=== PATIENT | male | born 1965 | race Caucasian/White ===

== ENCOUNTER 2017-08-29 10:20 | Inpatient (IN) ==
--- NOTE | 2017-08-29 10:29 | Emergency Department Note ---
Disposition Clinical Impression: Hemoptysis Pneumonia Qualifiers: Pneumonia type: due to unspecified organism Laterality: right Lung location: upper lobe of lung Qualified Code(s): J18.1 - Lobar pneumonia, unspecified organism Disposition: Admitted As Inpatient Condition: Fair Referrals: Yarelis Norwood CNP [Primary Care Provider] - Time of Disposition: 14:23 General Adult HPI - General Chief complaint: ED Chest Pain Stated complaint: chest pain and bleeding in right lung-cancer cente Time Seen by Provider: 08/29/17 10:29 Source: patient Limitations: no limitations Nursing Notes Reviewed: Yes Vital Signs Reviewed: Yes - History of Present Illness HPI Narrative: Hemoptysis began last night. Started out as a painting sputum. Today is chintan blood when he coughs. No episodes while here. Reports right-sided chest pain that is very significant even when you lightly palpate his chest wall. No fevers at home. Was at the cancer center and sent here for the hemoptysis. Pain Scale: 6 - Related Data Home Medications Medication Instructions Recorded Confirmed Docusate Sodium [Stool Softener] 100 mg PO DAILY 08/24/17 08/24/17 Previous Rx's Medication Instructions Recorded Magic Mouthwash [Magic Mouthwash 10 ml PO QID PRN #240 ml 07/31/17 BLM] Ondansetron HCl [Zofran] 4 mg PO Q8HR PRN #90 tab 07/31/17 Prochlorperazine Maleate 10 mg PO Q8HR PRN #90 tablet 07/31/17 [Compazine] Morphine Sulfate SR (12 HR) [MS 1 tab PO Q8HR 30 Days #90 tab 08/21/17 Contin] OxyCODONE Immed Rel [Roxicodone 5 10 mg PO Q6HR PRN 15 Days #120 08/24/17 MG] tablet Allergies Allergy/AdvReac Type Severity Reaction Status Date / Time No Known Allergies Allergy Verified 08/29/17 10:22 All systems ED: reviewed and negative except as stated. Constitutional: Denies: fever, chills ENT ED: Denies: congestion Cardiovascular: Reports: chest pain. Denies: palpitations, syncope Respiratory: Reports: cough, dyspnea, sputum production (Bloody) Gastrointestinal: Denies: abdominal pain, nausea, vomiting, diarrhea Genitourinary: Denies: urgency, dysuria Integumentary: Denies: rash Neurological: Denies: weakness Past Medical History - Past Medical History Attestation: Yes The following information was validated with the patient. Source: patient Medical history: Reports: cancer, other Surgical history: Reports: other Psychiatric history: Reports: no psych history - Social History Smoking Status: Former smoker Smokeless Tobacco Status: No Alcohol use: Reports: none Drug use: Reports: none Physical Exam - General Limitations: no limitations General appearance: alert, in no apparent distress - Head Head exam: atraumatic, normocephalic, normal inspection - Eye Eye exam: Present: normal appearance, PERRL, EOMI - ENT ENT exam: normal exam, normal oropharynx, mucous membranes moist - Neck Neck exam: Present: normal inspection, full ROM, trachea midline - Chest Chest inspection: Present: normal inspection, symmetric chest wall rise - Respiratory Respiratory exam: Present: normal lung sounds bilaterally. Absent: respiratory distress, accessory muscle use - Cardiovascular Cardiovascular exam: Present: regular rate, normal rhythm, normal heart sounds - Abdominal Exam Abdominal exam: Present: soft, Non-Tender. Absent: tenderness, distention, guarding, rebound, rigidity, organomegaly - Extremities Exam Extremities exam: Present: normal inspection, full ROM, normal capillary refill. Absent: tenderness, pedal edema - Neurological Exam Neurological exam: Present: alert, oriented X3 - Psychiatric Psychiatric exam: Present: normal affect, normal mood - Skin Skin exam: Present: warm, dry, intact, normal color Course Course Narrative: Male patient being sent from the cancer center for a CT of his chest. States that he started having some pink tinged sputum last night and now has bright red blood-tinged sputum this morning. Denies any fevers or chills. Denies any constitutional symptoms. States that he would not be here except he was sent for the CT. We will contact the cancer Center to discuss the patient's presentation and ensure we are ordering the correct CT. He is agreeable with this. He does report right-sided chest pain. States that it hurts if you just touch his skin. This is consistent with his small cell carcinoma. States that he always has this pain on the right side of his chest. - Reevaluation(s) Reevaluation #1: Patient was found to be anemic. We have started 1 unit of blood. CTA showed central necrosis and progression of his cavitary lesion. Also possible pneumonia with a cavitary lesion in central necrosis. We will start patient on antibiotic said this time. He was febrile at 100.1 while here. We have discussed the patient with the hospitalist as well as the chargeback analyst. Patient is agreeable to admission at this time. - Consultations Consultation #1: Dr smith accepted Pt in stable condition. He is requesting that we consult home. We have placed the order and call. Time: 14:12 Consultation #2: I spoke with Dr Arroyo. He is requesting that the Pt be NPO at midnight Time: 14:21 Vital Signs Temperature 100.1 F H 08/29/17 10:22 Pulse Rate 86 08/29/17 10:22 Respiratory Rate 20 08/29/17 10:22 Blood Pressure 109/65 08/29/17 10:22 O2 Sat by Pulse Oximetry 97 08/29/17 10:22 Temperature 98.4 F 08/29/17 14:03 Pulse Rate 81 08/29/17 14:07 Respiratory Rate 12 08/29/17 14:07 Blood Pressure 113/68 08/29/17 14:07 O2 Sat by Pulse Oximetry 95 08/29/17 14:07 Oxygen Delivery Oxygen Delivery Room Air Medical Decision Making - Medical Records Medical records reviewed: Yes I reviewed the patient's medical records. - Lab Data Lab results reviewed: Yes I reviewed the patient's lab results. Result diagrams: 08/29/17 10:56 08/29/17 10:57 Lab Results 08/29/17 08/29/17 08/29/17 Range/Units 10:56 10:57 12:12 WBC 8.3 (4.3-11.1) K/mcL RBC 3.15 L (4.19-5.50) M/mcL Hgb 8.8 L (12.9-16.9) g/dL Hct 26.3 L (37.5-50.1) % MCV 83.5 (83.0-100.0) fL MCH 27.9 L (28.0-33.3) pg MCHC 33.5 (31.6-35.5) g/dL RDW 14.6 H (11.5-14.5) % Plt Count 171 (140-400) K/mcL MPV 9.9 (9.4-12.4) fL Immature Gran % 1.0 (0-4) % Seg Neutrophils % 86.8 % Lymphocytes % 4.5 % Monocytes % 7.5 % Eosinophils % 0.1 % Basophils % 0.1 % Neutrophils # 7.2 (1.6-8.9) K/mcL Lymphocytes # 0.4 L (0.6-4.6) K/mcL Monocytes # 0.6 (0.0-1.3) K/mcL Eosinophils # 0.0 (0.0-0.6) K/mcL Basophils # 0.0 (0.0-0.2) K/mcL Sodium 127 L (136-145) mEq/L Potassium 3.7 (3.5-5.1) mEq/L Chloride 93 L (98-107) mEq/L Carbon Dioxide 28 (23-29) mEq/L BUN 11 (6-20) mg/dL Creatinine 0.50 L (0.70-1.30) mg/dL Est GFR ( Amer) > 60 (> 60) Est GFR (Non-Af Amer) > 60 (> 60) BUN/Creatinine Ratio 22 (6-26) Glucose 117 H (70-105) mg/dL Calculated Osmolality 264 L (280-300) Calcium 8.6 (8.6-10.3) mg/dL Troponin I < 0.03 (< 0.04) ng/mL Blood Type A POSITIVE Antibody Screen NEGATIVE Crossmatch See Detail - Radiology Data Radiology results reviewed: Yes I reviewed the patient's radiology results. Chest CTA 08/29/17 11:23 IMPRESSION: 1. Disease progression of right upper lobe mass, known non-small cell lung cancer, now with central areas of gas suggestive of necrosis. Peripheral to the mass, there is a consolidation with a central cavity suggestive of a post obstructive pneumonitis/pneumonia with necrosis and central cavitation. Mass is inseparable from the adjacent mediastinal soft tissue. It is unclear whether mediastinal soft tissue is extension of the lung mass or contiguous adenopathy. 2. No evidence of pulmonary embolus. D/ / 08/29/2017 13:51:06 Michele Fowler MD / [email or web address] Interpreting Provider: Michele Fowler MD - EKG Data EKG #1 EKG attestation: Yes I reviewed and interpreted this EKG. EKG results narrative: Normal sinus rhythm at a rate of 66. IA interval is 123. QRS duration is 89. QT is 367. QTC is 380. No signs of acute ischemia. No previous EKG to compare to.
[2017-08-29] MEDS ORDERED: Isovue-370 500 ML INFUS..BTL IV ONE (11:23)
[2017-08-29 11:43] LABS: Basophils % 0.1 %; Eosinophils % 0.1 %; Hematocrit 26.3 % (37.5-50.1); Hemoglobin 8.8 g/dL (12.9-16.9); Lymphocytes # 0.4 K/mcL (0.6-4.6); Lymphocytes % 4.5 %; Mean Corpuscular HGB Conc 33.5 g/dL (31.6-35.5); Mean Corpuscular Hemoglobin 27.9 pg (28.0-33.3); Mean Corpuscular Volume 83.5 fL (83.0-100.0); Mean Platelet Volume 9.9 fL (9.4-12.4); Monocytes # 0.6 K/mcL (0.0-1.3); Monocytes % 7.5 %; Neutrophils # 7.2 K/mcL (1.6-8.9); Platelet Count 171 K/mcL (140-400); Red Blood Count 3.15 M/mcL (4.19-5.50); Red Cell Distribution Width 14.6 % (11.5-14.5); Segmented Neutrophils % 86.8 %
[2017-08-29] MEDS ORDERED: *HR* OxyCODONE/APAP 10/325 TABLET PO ONE (12:00)
[2017-08-29] MEDS ORDERED: Ondansetron 4 MG/2 ML VIAL IVP ONE (12:00)
[2017-08-29 12:06] LABS: Troponin I < 0.03 ng/mL (< 0.04)
--- NOTE | 2017-08-29 12:19 | Emergency Department Note ---
Disposition Clinical Impression: Hemoptysis Disposition: Admitted As Inpatient Referrals: Yarelis Norwood CNP [Primary Care Provider] - Forms: ED Satisfaction Letter General Adult HPI - General Chief complaint: ED Chest Pain Stated complaint: chest pain and bleeding in right lung-cancer cente Time Seen by Provider: 08/29/17 10:29 Source: patient Limitations: no limitations - History of Present Illness Pain Scale: 6 - Related Data Home Medications Medication Instructions Recorded Confirmed Docusate Sodium [Stool Softener] 100 mg PO DAILY 08/24/17 08/24/17 Previous Rx's Medication Instructions Recorded Magic Mouthwash [Magic Mouthwash 10 ml PO QID PRN #240 ml 07/31/17 BLM] Ondansetron HCl [Zofran] 4 mg PO Q8HR PRN #90 tab 07/31/17 Prochlorperazine Maleate 10 mg PO Q8HR PRN #90 tablet 07/31/17 [Compazine] Morphine Sulfate SR (12 HR) [MS 1 tab PO Q8HR 30 Days #90 tab 08/21/17 Contin] OxyCODONE Immed Rel [Roxicodone 5 10 mg PO Q6HR PRN 15 Days #120 08/24/17 MG] tablet Allergies Allergy/AdvReac Type Severity Reaction Status Date / Time No Known Allergies Allergy Verified 08/29/17 10:22 Past Medical History - Past Medical History Medical history: Reports: cancer, other Surgical history: Reports: other Psychiatric history: Reports: no psych history - Social History Smoking Status: Former smoker Smokeless Tobacco Status: No Alcohol use: Reports: none Drug use: Reports: none Physical Exam - General Limitations: no limitations General appearance: alert Course Vital Signs Temperature 100.1 F H 08/29/17 10:22 Pulse Rate 86 08/29/17 10:22 Respiratory Rate 20 08/29/17 10:22 Blood Pressure 109/65 08/29/17 10:22 O2 Sat by Pulse Oximetry 97 08/29/17 10:22 Temperature 100.1 F H 08/29/17 10:22 Pulse Rate 80 08/29/17 11:39 Respiratory Rate 18 08/29/17 11:39 Blood Pressure 109/61 08/29/17 11:39 O2 Sat by Pulse Oximetry 95 08/29/17 11:39 Oxygen Delivery Oxygen Delivery Room Air Medical Decision Making - Lab Data Result diagrams: 08/29/17 10:56 Lab Results 08/29/17 08/29/17 Range/Units 10:56 10:57 WBC 8.3 (4.3-11.1) K/mcL RBC 3.15 L (4.19-5.50) M/mcL Hgb 8.8 L (12.9-16.9) g/dL Hct 26.3 L (37.5-50.1) % MCV 83.5 (83.0-100.0) fL MCH 27.9 L (28.0-33.3) pg MCHC 33.5 (31.6-35.5) g/dL RDW 14.6 H (11.5-14.5) % Plt Count 171 (140-400) K/mcL MPV 9.9 (9.4-12.4) fL Immature Gran % 1.0 (0-4) % Seg Neutrophils % 86.8 % Lymphocytes % 4.5 % Monocytes % 7.5 % Eosinophils % 0.1 % Basophils % 0.1 % Neutrophils # 7.2 (1.6-8.9) K/mcL Lymphocytes # 0.4 L (0.6-4.6) K/mcL Monocytes # 0.6 (0.0-1.3) K/mcL Eosinophils # 0.0 (0.0-0.6) K/mcL Basophils # 0.0 (0.0-0.2) K/mcL Troponin I < 0.03 (< 0.04) ng/mL Attestation Statement - Attestation Attestation: I examined this patient and my medical decision-making was reviewed with the Resident Physician. I agree with the documented findings, disposition and treatment plan as described except to the extent set forth below. 52 year old male prsentes to the ED with coplaints of hemoptyosis that started yesterday and pink tinged sputum and now has bright red blood and currently has stage 3 lug cancer which he is actively recieving radiation therpay. This is the first time that he has experienced hemoptysis. Patient hgb is 8.8 and will need to eb trasnfused as it has dropped 2 units in 4 days. PAtinet will be transfused 1 unit and CTA chest with brittney admission to medicine for more urgent bronchoscopy for evaluation of his lung mass
[2017-08-29 13:03] LABS: BUN/Creatinine Ratio 22 (6-26); Blood Urea Nitrogen 11 mg/dL (6-20); Calcium 8.6 mg/dL (8.6-10.3); Carbon Dioxide 28 mEq/L (23-29); Chloride 93 mEq/L (98-107); Glucose 117 mg/dL (70-105); Osmolality,Calculated 264 (280-300); Potassium 3.7 mEq/L (3.5-5.1); Sodium 127 mEq/L (136-145); eGFR For African Americans > 60 (> 60); eGFR For Non-African Americans > 60 (> 60)
[2017-08-29] MEDS ORDERED: 0.9 % Sodium Chloride 500 ML ONE (13:50)
[2017-08-29] MEDS ORDERED: Piperacillin/Tazobactam 3.375 GM in 0.9 % Sodium Chloride Mini Bag 100 ML IVPB ONE (13:51)
[2017-08-29] MEDS ORDERED: *HR* Morphine Immed Rel 30 MG TABLET PO STA (14:27)
[2017-08-29] MEDS ORDERED: Naloxone 0.4 MG/ML INJ IVP PRN (15:11)
[2017-08-29] MEDS ORDERED: 0.9 % Sodium Chloride 1,000 ML IVC SCH (15:15)
[2017-08-29] MEDS ORDERED: Magic Mouthwash 10 ML UD Cup PO PRN (15:16)
--- NOTE | 2017-08-29 15:35 | Internal Med History&Physical ---
Date of Encounter: 08/29/17 Time of Encounter: 15:30 Internal Medicine - H&P: HPI Admitted From: Home Plans for Post Hospital Care: Home History of present illness: Mr. Varghese is a 52 year old male who presented to the ED with chief complaint of hemoptyosis and cough. Patient was recently diagnosed with non-small cell lung cancer back in June and is been on chemotherapy and radiation therapy since then. Patient presented to his cancer clinic today and he was sent to the emergency room from there. He started having bad cough since cold physical but this morning he had bright red blood hemoptysis. He had a low-grade temperature of 100.1. Patient hemoglobin was found low 8.8. Patient denied having diarrhea or constipation. He did he has ribs pain secondary for months and worsening with cough. Denied any headache no blurry vision. He did have nausea and vomited once after he had bad cough. Patient used to be a smoker but he quit smoking back in June when he was diagnosed with lung cancer. Past Med Surg Social Fam HX - Past Medical History Medical history: cancer, other Additional medical history: pleursy, kidney stones, diverticulitis, R sided non- small cell lung cancer Psychiatric history: no psych history - Past Surgical History Surgical History: other Additional surgical history: bowel resection, aport - Social History Smoking Status: Former smoker Smokeless Tobacco Status: No Alcohol use: none Drug use: none - Additional Family History Additional family history: Positive for hypertension Internal Medicine - H&P: Meds Magic Mouthwash [Magic Mouthwash BLM] 10 ml PO QID PRN #240 ml 07/31/17 [Rx] Ondansetron HCl [Zofran] 4 mg PO Q8HR PRN #90 tab 07/31/17 [Rx] Prochlorperazine Maleate [Compazine] 10 mg PO Q8HR PRN #90 tablet 07/31/17 [Rx] Morphine Sulfate SR (12 HR) [MS Contin] 1 tab PO Q8HR 30 Days #90 tab 08/21/17 [ Rx] Docusate Sodium [Stool Softener] 100 mg PO DAILY 08/24/17 [History] OxyCODONE Immed Rel [Roxicodone 5 MG] 10 mg PO Q6HR PRN 15 Days #120 tablet [Rx] 3 Allergy/AdvReac Type Severity Reaction Status Date / Time No Known Allergies Allergy Verified 08/29/17 10:22 All Systems PM: A 10-system review of systems was performed and is negative for pertinent findings except as documented above in the HPI. - Constitutional Constitutional: fever(s), weakness Additional comments: Comprehensive 10 point review of system was done and it was negative other than what was mentioned above - EENT Eyes: no change in vision, no discharge, no pain, no photophobia Ears: no ear discharge, no ear pain, no tinnitus Nose, mouth and throat: no dysphagia, no nasal discharge, no neck pain, no sore throat - Cardiovascular Cardiovascular ROS IM: no chest pain, no diaphoresis, no dyspnea, no lightheadedness, no palpitations, no syncope - Respiratory Respiratory: cough, hemoptysis, dyspnea on exertion, pain with cough - Gastrointestinal Gastrointestinal: no abdominal pain, no diarrhea, no hematemesis, no hematochezia, no melena, no nausea, no vomiting - Neurological Neurological ROS: no confusion, no convulsions, no focal weakness, no numbness, no tingling, no tremor(s) - Constitutional Vitals: Temp Pulse Resp BP Pulse Ox 98.2 F 81 18 113/55 95 08/29/17 14:18 08/29/17 14:18 08/29/17 14:18 08/29/17 14:18 08/29/17 14:18 - Head Head exam: Present: atraumatic, normocephalic - Eye Eye exam: Present: PERRL, conjuntiva pink, sclera anicteric Pupils: Present: PERRL - Neck Neck exam general surgery: Present: supple, trachea midline. Absent: lymphadenopathy - Respiratory Respiratory exam: Present: CTAB. Absent: accessory muscle use, rales, rhonchi, wheezes - Cardiovascular Cardiovascular exam: Present: RRR, +S1, +S2. Absent: diastolic murmur, gallop, rubs, systolic murmur - GI/Abdominal GI/Abdominal exam: Present: normal bowel sounds, soft, no peritoneal signs. Absent: distended, tenderness - Extremities Exam Extremities exam: Present: warm, radial pulses palpable and symmetrical. Absent : calf tenderness, cyanotic, pedal edema - Neurological Exam Neurological exam: Present: CN II-XII intact, oriented X3, no focal deficits. Absent: pronater drift, facial droop, speech deficit - Skin Skin exam: Present: dry, intact Internal Med - H&P Results - Labs CBC & Chem 7: 08/29/17 10:56 08/29/17 10:57 - VTE Reasons for not Prescribing Prophylaxis: Medical contraindication - Assessment and plan (1) Hemoptysis Current Visit: Yes Status: Acute Assessment and plan: Hemoglobin rapidly dropping to 8.8. Already being transfused 2 units of PRBCs in the ED Pulmonology consulted. I did talk to Dr. Cedeno with a plan for bronchoscopy tomorrow. Nothing by mouth after midnight Monitor H&H every 6 hours for now. May transfuse more if needed Patient is currently asymptomatic (2) Pneumonia Current Visit: Yes Status: Acute Assessment and plan: Observation on broad-spectrum antibiotics with vancomycin and Zosyn. Patient is immune compromised Blood cultures and sputum cultures before antibiotics administration Check lactic acid. Check procalcitonin level Breathing treatment Cough suppressants. Antiemetics when necessary Qualifiers: Pneumonia type: due to unspecified organism Laterality: right Lung location: upper lobe of lung Qualified Code(s): J18.1 - Lobar pneumonia, unspecified organism (3) Hyponatremia Current Visit: Yes Status: Acute Assessment and plan: Mild hyponatremia with sodium 127 Patient is dehydrated. Continue gentle hydration with normal saline By mouth water restriction (4) Dehydration Current Visit: Yes Status: Acute Assessment and plan: Continue IV hydration (5) Lung cancer Current Visit: No Status: Acute Assessment and plan: Currently on chemotherapy and radiation therapy. May need to hold chemotherapy of the concurrent treatment of pneumonia Will consult the patient oncologist if needed Qualifiers: Qualified Code(s): C34.90 - Malignant neoplasm of unspecified part of unspecified bronchus or lung (6) DVT prophylaxis Current Visit: Yes Status: Acute Assessment and plan: Hold any heparin products due to hemoptysis. We will add SCDs (7) On esomeprazole prophylaxis Current Visit: Yes Status: Acute - Time Spent With Patient Total time spent is greater than 50% in coordination of care (as documented) at patient's floor/unit and/or counseling patient:
[2017-08-29 15:36] LABS: INR 1.4; Prothrombin Time 15.6 Seconds (9.4-12.1)
[2017-08-29] MEDS ORDERED: *HR* Morphine Sulfate SR (12 HR) 15 MG TABLET.ER PO SCH (16:00)
--- NOTE | 2017-08-29 17:12 | Pulmonology Consult Note ---
Date of Encounter: 08/29/17 Time of Encounter: 15:30 Assessment and Plan (1) Hemoptysis Current Visit: Yes Status: Acute Patient with hemoptysis and underlying non-small cell lung cancer and concern of endobronchial lesion and also postobstructive pneumonia. Explained to him airway inspection is warranted with his hemoptysis and he understand all the risks, alternative, benefits of the rhonchi auscultated since he had one done when he had his diagnosis of lung cancer. I will plan for bronchoscopy tomorrow since patient has eaten and drinking recently and this was discussed with the emergency room physician and the primary team. Thank you for the consultation. (2) Pneumonia Current Visit: Yes Status: Acute This is most likely post obstructive pneumonia and empiric antibiotics is reasonable. Qualifiers: Pneumonia type: due to unspecified organism Laterality: right Lung location: upper lobe of lung Qualified Code(s): J18.1 - Lobar pneumonia, unspecified organism (3) Lung cancer Current Visit: No Status: Acute Qualifiers: Qualified Code(s): C34.90 - Malignant neoplasm of unspecified part of unspecified bronchus or lung History of Present Illness Consult date: 08/29/17 Requesting physician: Tigre Pretty Reason for consult: lung mass, abnormal CXR/CT, other (Hemoptysis) History of present illness: Mrs. fabian 52-year-old male who is known to me from outpatient and had bronchoscopy with diagnosis of non-small cell lung cancer and presented today after his been having hemoptysis which is started as strong can forceful cough and started as sputum tinged then was having more fresh blood. Patient stated since he has not coughed forcefully there is no hemoptysis. Patient had CT chest which was abnormal. Patient was seen in cancer center and referred to emergency room for evaluation. Patient denies any significant wheezing and no significant chest pain. Patient is a former smoker. He also has temperature of 100.1. He denies any other symptoms at this time. He did complain of chest pain after the cough. Past Med Surg Social Fam HX - Past Medical History Medical history: cancer, other Additional medical history: pleursy, kidney stones, diverticulitis, R sided non- small cell lung cancer Psychiatric history: no psych history - Past Surgical History Surgical History: other Additional surgical history: bowel resection, aport - Social History Smoking Status: Former smoker Smokeless Tobacco Status: No Alcohol use: none Drug use: none Medications and Allergies Magic Mouthwash [Magic Mouthwash BLM] 10 ml PO QID PRN #240 ml 07/31/17 [Rx] Ondansetron HCl [Zofran] 4 mg PO Q8HR PRN #90 tab 07/31/17 [Rx] Prochlorperazine Maleate [Compazine] 10 mg PO Q8HR PRN #90 tablet 07/31/17 [Rx] Morphine Sulfate SR (12 HR) [MS Contin] 1 tab PO Q8HR 30 Days #90 tab 08/21/17 [ Rx] Docusate Sodium [Stool Softener] 100 mg PO DAILY 08/24/17 [History] OxyCODONE Immed Rel [Roxicodone 5 MG] 10 mg PO Q6HR PRN 15 Days #120 tablet [Rx] 3 Allergy/AdvReac Type Severity Reaction Status Date / Time No Known Allergies Allergy Verified 08/29/17 10:22 All Systems: The remainder of the systems were reviewed and are negative Physical Examination Vital Signs: Vital Signs, Last 4 Hours Temp Pulse Resp BP Pulse Ox 08/29/17 15:54 98.3 F 73 16 115/71 93 General appearance: no acute distress Eyes: nonicteric ENT: oropharynx dry Mallampati (class): 2 Neck: supple Effort: normal Auscultation: bilateral: rhonchi Percussion: bilateral: not dull Cardiovascular: regular rate and rhythm Gastrointestinal: normoactive bowel sounds, non-distended Extremities: no cyanosis normal mental status, non-focal exam mood appropriate Results - Laboratory Findings CBC and BMP: 08/29/17 10:56 08/29/17 10:57 PT/INR, D-dimer PT 15.6 Seconds (9.4-12.1) H 08/29/17 11:16 Abnormal lab findings: Abnormal lab results RBC 3.15 M/mcL (4.19-5.50) L 08/29/17 10:56 Hgb 8.8 g/dL (12.9-16.9) L 08/29/17 10:56 Hct 26.3 % (37.5-50.1) L 08/29/17 10:56 MCH 27.9 pg (28.0-33.3) L 08/29/17 10:56 RDW 14.6 % (11.5-14.5) H 08/29/17 10:56 Lymphocytes # 0.4 K/mcL (0.6-4.6) L 08/29/17 10:56 PT 15.6 Seconds (9.4-12.1) H 08/29/17 11:16 Sodium 127 mEq/L (136-145) L 08/29/17 10:57 Chloride 93 mEq/L (98-107) L 08/29/17 10:57 Creatinine 0.50 mg/dL (0.70-1.30) L 08/29/17 10:57 Glucose 117 mg/dL (70-105) H 08/29/17 10:57 Calculated Osmolality 264 (280-300) L 08/29/17 10:57 - Diagnostic Findings CT scan - chest: report reviewed, image reviewed - Clinical Findings Intake & Output: Intake & Output 08/29/17 08/29/17 08/29/17 07:59 15:59 23:59 Output Total 0 / 0 Balance 0 / 100 Consult Discharge Plan - Plan Referrals: Yarelis Norwood, [employer] [Primary Care Provider] -
[2017-08-29] MEDS: Ondansetron 4 MG/2 ML VIAL IVP SCH ×2 (17:37→23:17)
[2017-08-29] MEDS: 0.9 % Sodium Chloride 1,000 ML IVC SCH (17:37)
[2017-08-29] MEDS: *HR* Morphine Sulfate SR (12 HR) 15 MG TABLET.ER PO SCH ×2 (18:53→23:18)
[2017-08-29] MEDS: *HR* OxyCODONE Immed Rel 5 MG TABLET PO PRN (21:50)
[2017-08-29] MEDS: Piperacillin/Tazobactam 3.375 GM in 0.9 % Sodium Chloride Mini Bag 100 ML IVPB SCH (23:15)
[2017-08-30] MEDS: 0.9 % Sodium Chloride 1,000 ML IVC SCH ×2 (03:17→13:15)
[2017-08-30] MEDS: *HR* OxyCODONE Immed Rel 5 MG TABLET PO PRN ×4 (04:57→23:51)
[2017-08-30] MEDS: Ondansetron 4 MG/2 ML VIAL IVP SCH ×4 (04:58→23:52)
[2017-08-30 07:10] LABS: Basophils % 0.2 %; Eosinophils % 0.8 %; Hematocrit 28.6 % (37.5-50.1); Hemoglobin 9.4 g/dL (12.9-16.9); Immature Granulocytes % 0.6 % (0-4); Lymphocytes # 0.4 K/mcL (0.6-4.6); Lymphocytes % 8.1 %; Mean Corpuscular HGB Conc 32.9 g/dL (31.6-35.5); Mean Corpuscular Hemoglobin 28.1 pg (28.0-33.3); Mean Corpuscular Volume 85.4 fL (83.0-100.0); Mean Platelet Volume 9.5 fL (9.4-12.4); Monocytes # 0.5 K/mcL (0.0-1.3); Monocytes % 8.7 %; Neutrophils # 4.3 K/mcL (1.6-8.9); Platelet Count 168 K/mcL (140-400); Red Blood Count 3.35 M/mcL (4.19-5.50); Red Cell Distribution Width 14.9 % (11.5-14.5); Segmented Neutrophils % 81.6 %
[2017-08-30 07:30] LABS: BUN/Creatinine Ratio 16 (6-26); Blood Urea Nitrogen 7 mg/dL (6-20); Calcium 8.5 mg/dL (8.6-10.3); Carbon Dioxide 26 mEq/L (23-29); Chloride 101 mEq/L (98-107); Glucose 104 mg/dL (70-105); Magnesium 1.9 mg/dL (1.6-2.6); Osmolality,Calculated 274 (280-300); Potassium 3.8 mEq/L (3.5-5.1); Sodium 133 mEq/L (136-145); eGFR For African Americans > 60 (> 60); eGFR For Non-African Americans > 60 (> 60)
[2017-08-30] MEDS: Piperacillin/Tazobactam 3.375 GM in 0.9 % Sodium Chloride Mini Bag 100 ML IVPB SCH ×3 (08:27→23:54)
[2017-08-30] MEDS: *HR* Morphine Sulfate SR (12 HR) 15 MG TABLET.ER PO SCH ×3 (08:28→23:51)
--- NOTE | 2017-08-30 10:13 | Anesthesia Evaluation PreOp ---
Date of Encounter: 08/30/17 - Past History Planned Operation: Bronchoscopy Pulmonary History: Other (NSCC, on chemo & XRT, Hemoptysis,) Other Medical History: Bleeding (Hemoptysis, anemia, post PRBC), Other ( Hyponatremia, hypocalcemia, hypoalbuminemia, hypoproteinemia) Anesthesia History: No Prior Anesthetic Complications, Past Anesthesia Alcohol Use: none Drug use: none Medications and Allergies Magic Mouthwash [Magic Mouthwash BLM] 10 ml PO QID PRN #240 ml 07/31/17 [Rx] Ondansetron HCl [Zofran] 4 mg PO Q8HR PRN #90 tab 07/31/17 [Rx] Prochlorperazine Maleate [Compazine] 10 mg PO Q8HR PRN #90 tablet 07/31/17 [Rx] Morphine Sulfate SR (12 HR) [MS Contin] 1 tab PO Q8HR 30 Days #90 tab 08/21/17 [ Rx] Docusate Sodium [Stool Softener] 100 mg PO DAILY 08/24/17 [History] OxyCODONE Immed Rel [Roxicodone 5 MG] 10 mg PO Q6HR PRN 15 Days #120 tablet [Rx] 3 Allergy/AdvReac Type Severity Reaction Status Date / Time No Known Allergies Allergy Verified 08/29/17 10:22 - Meds/Allergy Pre-op Review Medications Reviewed: Yes Allergies Reviewed: Yes Anesthesia Results - Labs 08/30/17 06:23 08/30/17 06:23 Anesthesia Exam HEIGHT WEIGHT BMI Anesthesia Assess/Plan ASA Score: 4 Modified [place] Scale for Level of Consciousness: Cooperative, oriented, and tranquil Anesthetic Plan: General Monitoring Plan: Standard Monitors Recovery Plan: PACU
--- NOTE | 2017-08-30 11:53 | Internal Med Progress Note ---
Date of Encounter: 08/30/17 Time of Encounter: 11:50 - Assessment and plan (1) Pneumonia Current Visit: Yes Status: Acute Assessment and plan: Presented with shortness of breath and hemoptysis Disease progression of right upper lobe mass, known non-small cell cancer now with central areas of Suggestive of necrosis Consolidation with central cavitation suggestive of postobstructive pneumonitis/ pneumonia with necrosis and central cavitation Pulmonology was seeing in consultation however, patient refusing to see pulmonology team and refusing bronchoscopy Bronchoscopy would be beneficial in the setting of postobstructive pneumonitis as there is concern for endobronchial lesion however patient continues to refuse. After education No longer having hemoptysis, reports that shortness of breath is improving. Lungs are clear/diminished to auscultation Leukocytosis noted, patient is afebrile and mildly hypotensive but overall hemodynamically stable Continue empiric ABX therapy with vancomycin and Zosyn Patient also reporting right chest wall and right subscapular pain, most likely caused by radiation; continue current pain medication regimen Continuous SPO2 monitoring Respiratory support per nasal cannula when necessary Qualifiers: Pneumonia type: due to unspecified organism Laterality: right Lung location: upper lobe of lung Qualified Code(s): J18.1 - Lobar pneumonia, unspecified organism (2) Dehydration Current Visit: Yes Status: Acute Assessment and plan: Mild dehydration, continue IV hydration (3) Hyponatremia Current Visit: Yes Status: Acute Assessment and plan: Mild hyponatremia, see plan above Check labs daily (4) Hemoptysis Current Visit: Yes Status: Acute Assessment and plan: Resolved, patient denying any additional hemoptysis Patient presented with hemoptysis, underlying non-small cell lung cancer Imaging concerning for postobstructive pneumonia, consider endobronchial lesion Pulmonology has been consulted, appreciate recommendations; initial plan was for bronchoscopy, however patient is refusing bronchoscopy or to see pulmonology Consult to oncology for further assessment and evaluation, appreciate recommendations Specimen cup of sputum at bedside without hemoptysis (5) Lung cancer Current Visit: No Status: Acute Assessment and plan: History of non--small cell lung cancer status post bronchoscopy biopsy, PDL1 7% score, right upper lobe mass, T4 lesion invading mediastinum, paratracheal hilar adenopathy, possibly stage IIIB disease. No evidence of distant metastatic disease per PT Has been receiving concurrent chemoradiation therapy Patient states he is received 3 treatments thus far with 3 days ago Spoke with oncology who is sitting in consultation, per the recommendations Recommendations are to hold treatment until acute issues resolve his infection improves Qualifiers: Qualified Code(s): C34.90 - Malignant neoplasm of unspecified part of unspecified bronchus or lung (6) DVT prophylaxis Current Visit: Yes Status: Acute Assessment and plan: EPCD's - Time Spent With Patient Total time spent is greater than 50% in coordination of care (as documented) at patient's floor/unit and/or counseling patient: 25 - 35 minutes - Subjective Interval history: Patient seen and examined at bedside today. No acute changes overnight. He reports that he is no longer having hemoptysis. Still complaining of a productive cough with copious amounts of green/yellow sputum. Denies any shortness of breath. Is continuing to have right-sided chest wall pain radiating around to the right subscapular region. Denies any bleeding other than hemoptysis as stated above - Constitutional Vitals: Temp Pulse Resp BP Pulse Ox 98.5 F 69 16 96/60 97 08/30/17 10:34 08/30/17 10:34 08/30/17 10:34 08/30/17 10:34 08/30/17 10:34 General appearance: Present: A&O X 3, answers questions appropriately. Absent: cooperative, no acute distress - Head Head exam: Present: atraumatic, normocephalic - Eye Eye exam: Present: EOMI, PERRL, conjuntiva pink, sclera anicteric Pupils: Present: PERRL - Neck Neck exam general surgery: Present: supple, trachea midline. Absent: lymphadenopathy - Respiratory Respiratory exam: Present: chest wall tenderness (Right-sided chest wall tenderness with radiation to the right subscapular region), decreased breath sounds, CTAB. Absent: accessory muscle use, rales, respiratory distress, rhonchi, wheezes, tachypnea - Cardiovascular Cardiovascular exam: Present: RRR, +S1, +S2. Absent: diastolic murmur, gallop, rubs, systolic murmur - GI/Abdominal GI/Abdominal exam: Present: normal bowel sounds, soft, no peritoneal signs. Absent: distended, tenderness - Extremities Exam Extremities exam: Present: normal capillary refill, normal inspection, warm, radial pulses palpable and symmetrical. Absent: calf tenderness, cyanotic, pedal edema, tenderness - Back Exam Additional comments: Subscapular tenderness to palpation - Neurological Exam Neurological exam: Present: alert, CN II-XII intact, oriented X3, no focal deficits. Absent: pronater drift, facial droop, speech deficit - Skin Skin exam: Present: dry, intact Internal Medicine: Result - Labs CBC & Chem 7: 08/30/17 06:23 08/30/17 06:23 Labs: Short CBC 08/30/17 Range/Units 06:23 WBC 5.3 (4.3-11.1) K/mcL Hgb 9.4 L (12.9-16.9) g/dL Hct 28.6 L (37.5-50.1) % Plt Count 168 (140-400) K/mcL Neutrophils # 4.3 (1.6-8.9) K/mcL BMP 08/30/17 06:23 Sodium 133 L Potassium 3.8 Chloride 101 Carbon Dioxide 26 BUN 7 Creatinine 0.43 L Glucose 104 Calcium 8.5 L Cardiac Enzymes 08/29/17 Range/Units 18:29 Troponin I < 0.03 (< 0.04) ng/mL - ABG Interpretation ABG results: PT/INR, D-dimer PT 15.6 Seconds (9.4-12.1) H 08/29/17 11:16 - VTE Reasons for not Prescribing Prophylaxis: Medical contraindication Documentation of Mechanical Device: Intermittent pneumatic compression device Consult Discharge Plan - Plan Referrals: Yarelis Norwood CNP [Primary Care Provider] -
--- NOTE | 2017-08-30 14:51 | Electrocardiograph Report ---
[place] [facility] Test Date: 2017-08-29 Pat Name: Ramin Varghese Department: 103 Room: 3A24 Gender: M Director Fundraising: : 1965 Requested By: Marguerite Vogel Order Number: [id number] Reading MD: Nabil Quintero Measurements Intervals [place] Rate: 66 P: 53 W[place]: 123 QRS: 25 QRSD: 89 T: 31 QT: 367 QTc: 380 Interpretive Statements SINUS RHYTHM Electronically Signed On 08-30-2017 14:50:05 EDT by Nabil Quintero
--- NOTE | 2017-08-30 16:17 | Oncology Inp Consult Note ---
<Claire Javed L - Last Filed: 08/30/17 16:24> Date of Encounter: 08/30/17 Time of Encounter: 12:30 Assessment and Plan (1) Pneumonia Status: Acute Assessment and plan: He is declining bronchoscopy which was recommended for concern of endobronchial lesion and also postobstructive pneumonia. States his symptoms are improving. O2 sats normal on room air. His ANC is normal, no leukocytosis Appreciate management per hospitalist team with Vanc/Zosyn currently Cultures pending Qualifiers: Pneumonia type: due to unspecified organism Laterality: right Lung location: upper lobe of lung Qualified Code(s): J18.1 - Lobar pneumonia, unspecified organism (2) Lung cancer Status: Acute Assessment and plan: Non-small cell lung cancer status post bronchoscopy biopsy, PDL1 7% score, right upper lobe mass, T4 lesion invading mediastinum, paratracheal hilar adenopathy, possibly stage IIIB disease. Distant metastatic disease is negative by PET imaging (liver findings noted since ) He started concurrent chemoradiation therapy, carbotaxol weekly, week 2 on 08/24. Treatment on hold until acute issues resolve, infection improves. Plan to resume treatment plan on outpatient basis Please refer to Dr. Christopher's attestation below for additional details. Qualifiers: Qualified Code(s): C34.90 - Malignant neoplasm of unspecified part of unspecified bronchus or lung - Data of Consult Patient: known to practice within the last 3 years Consult date: 08/30/17 Requesting Physician: Rob Guevara Primary Care Provider: Yarelis Norwood CNP - Consult Narrative Reason for consult: Non small cell carcinoma RUL, stage IIIB History of present illness: Mr. Varghese is a 52 year old male with medical history significant for diverticulitis, kidney stone pleurisy infection, tobacco abuse, who had undergone CT imaging of the chest 2 years ago that showed a right upper lung nodule, underwent PET imaging that showed hypermetabolic activity and a biopsy was suggested. Patient had lost follow-up he had right sided pleurisy/ pneumonia was treated at [facility] underwent further CT imaging official reports are not available but shows a huge right upper lobe mass. Patient had also had a CT scan of the abdomen for his prostate issues done by urology without contrast did not show any abnormalities in the abdomen. He underwent further staging with MRI brain which was negative for metastatic disease done in July 2017. A PET scan showed intense uptake in the right upper lobe mass up to 9 cm in size extending to the mediastinum, right lower paratracheal lymphadenopathy hilar adenopathy, lymphangitic spread, no distant metastatic disease by PET imaging--uptake in the gallbladder fossa the has slightly changed compared to 2015. 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 Mr. Varghese presented to [facility] ED on 08/29/2017 with report of hemoptysis, worsening cough, pain with cough and fever. He had a CTA which revealed " disease progression of right upper lobe mass, known non-small cell lung cancer, now with central areas of gas suggestive of necrosis. Peripheral to the mass, there is a consolidation with a central cavity suggestive of a post obstructive pneumonitis/pneumonia with necrosis and central cavitation. Mass is inseparable from the adjacent mediastinal soft tissue. It is unclear whether mediastinal soft tissue is extension of the lung mass or contiguous adenopathy. " Pulmonology consulted for potential bronchoscopy for concern of endobronchial lesion and also postobstructive pneumonia, however, patient is declining bronch. Past Med Surg Social Fam HX - Past Medical History Medical history: cancer, other Additional medical history: pleursy, kidney stones, diverticulitis, R sided non- small cell lung cancer Psychiatric history: no psych history - Past Surgical History Surgical History: other Additional surgical history: bowel resection, aport - Social History Smoking Status: Former smoker Smokeless Tobacco Status: No Alcohol use: none Drug use: none Medications and Allergies Magic Mouthwash [Magic Mouthwash BLM] 10 ml PO QID PRN #240 ml 07/31/17 [Rx] Ondansetron HCl [Zofran] 4 mg PO Q8HR PRN #90 tab 07/31/17 [Rx] Prochlorperazine Maleate [Compazine] 10 mg PO Q8HR PRN #90 tablet 07/31/17 [Rx] Morphine Sulfate SR (12 HR) [MS Contin] 1 tab PO Q8HR 30 Days #90 tab 08/21/17 [ Rx] Docusate Sodium [Stool Softener] 100 mg PO DAILY 08/24/17 [History] OxyCODONE Immed Rel [Roxicodone 5 MG] 10 mg PO Q6HR PRN 15 Days #120 tablet [Rx] 3 Allergy/AdvReac Type Severity Reaction Status Date / Time No Known Allergies Allergy Verified 08/29/17 10:22 Constitutional: Present: chills, fatigue, fever(s), weakness Eyes: Absent: change in vision Nose, mouth and throat: Absent: dysphagia Cardiovascular: Absent: chest pain, palpitations Respiratory: Present: as per HPI, cough, dyspnea, hemoptysis. Absent: wheezing Gastrointestinal: Absent: abdominal pain, nausea, vomiting Additional comments: denies dysuria Musculoskeletal: Present: muscle weakness Integumentary: Absent: rash, wounds Neurological: Present: weakness. Absent: focal weakness, frequent falls Psychiatric: Present: as per HPI Hematologic/Lymphatic: Present: as per HPI Oncology - Exam - Constitutional Vitals: Temp Pulse Resp BP Pulse Ox 98.1 F 73 15 85/51 97 08/30/17 14:28 08/30/17 14:28 08/30/17 14:28 08/30/17 14:28 08/30/17 14:28 Oncology - Results Labs: 3 08/30/17 08/30/17 08/29/17 06:23 06:23 18:29 WBC 5.3 RBC 3.35 L Hgb 9.4 L Hct 28.6 L MCV 85.4 MCH 28.1 MCHC 32.9 RDW 14.9 H Plt Count 168 MPV 9.5 Immature Gran % 0.6 Seg Neutrophils % 81.6 Lymphocytes % 8.1 Monocytes % 8.7 Eosinophils % 0.8 Basophils % 0.2 Neutrophils # 4.3 Lymphocytes # 0.4 L Monocytes # 0.5 Eosinophils # 0.0 Basophils # 0.0 Sodium 133 L Potassium 3.8 Chloride 101 Carbon Dioxide 26 BUN 7 Creatinine 0.43 L Est GFR ( Amer) > 60 Est GFR (Non-Af Amer) > 60 BUN/Creatinine Ratio 16 Glucose 104 Calculated Osmolality 274 L Calcium 8.5 L Magnesium 1.9 Troponin I < 0.03 Consult Discharge Plan - Plan Referrals: Yarelis Norwood, SINGLE NEEDLE OPERATOR [Primary Care Provider] - <Jian Virk - Last Filed: 08/30/17 16:54> Date of Encounter: 08/30/17 Assessment and Plan (1) Lung cancer Status: Acute Assessment and plan: Patient was seen and examined bedside. He had concerns about holding off on treatments while he is in the hospital, we will definitely hold chemotherapy until infection resolves, patient clinically feeling improved. Radiation appointment to be set up once he is stable. I examined this patient and my medical decision-making was reviewed with the Advanced Practice Nurse, Claire Javed. I agree with the documented findings, disposition and treatment plan as described except to the extent set forth below. Qualifiers: Qualified Code(s): C34.90 - Malignant neoplasm of unspecified part of unspecified bronchus or lung - Data of Consult Requesting Physician: Rob Guevara Primary Care Provider: Yarelis Norwood CNP Oncology - Exam - Constitutional Vitals: Temp Pulse Resp BP Pulse Ox 98.1 F 73 15 85/51 97 08/30/17 14:28 08/30/17 14:28 08/30/17 14:28 08/30/17 14:28 08/30/17 14:28 General appearance: no acute distress - Head Head exam: Present: atraumatic, normal inspection - Eye Eye exam: Present: sclera anicteric - ENT ENT exam: Present: mucous membranes moist - Neck Neck exam: Present: full ROM - Respiratory Respiratory exam: Present: CTAB, wheezes - Cardiovascular Cardiovascular exam: Present: +S1, +S2 - GI/Abdominal GI/Abdominal exam: Present: normal bowel sounds, soft - Extremities Exam Extremities exam: Present: normal inspection Oncology - Results Labs: 3 08/30/17 08/30/17 08/29/17 06:23 06:23 18:29 WBC 5.3 RBC 3.35 L Hgb 9.4 L Hct 28.6 L MCV 85.4 MCH 28.1 MCHC 32.9 RDW 14.9 H Plt Count 168 MPV 9.5 Immature Gran % 0.6 Seg Neutrophils % 81.6 Lymphocytes % 8.1 Monocytes % 8.7 Eosinophils % 0.8 Basophils % 0.2 Neutrophils # 4.3 Lymphocytes # 0.4 L Monocytes # 0.5 Eosinophils # 0.0 Basophils # 0.0 Sodium 133 L Potassium 3.8 Chloride 101 Carbon Dioxide 26 BUN 7 Creatinine 0.43 L Est GFR ( Amer) > 60 Est GFR (Non-Af Amer) > 60 BUN/Creatinine Ratio 16 Glucose 104 Calculated Osmolality 274 L Calcium 8.5 L Magnesium 1.9 Troponin I < 0.03
[2017-08-31] MEDS: 0.9 % Sodium Chloride 1,000 ML IVC SCH ×4 (00:04→16:13)
[2017-08-31 05:38] LABS: Basophils % 0.2 %; Eosinophils % 0.7 %; Hemoglobin 8.8 g/dL (12.9-16.9); Immature Granulocytes % 0.4 % (0-4); Lymphocytes # 0.3 K/mcL (0.6-4.6); Lymphocytes % 6.6 %; Mean Corpuscular HGB Conc 32.6 g/dL (31.6-35.5); Mean Corpuscular Hemoglobin 27.9 pg (28.0-33.3); Mean Corpuscular Volume 85.7 fL (83.0-100.0); Mean Platelet Volume 9.7 fL (9.4-12.4); Monocytes # 0.4 K/mcL (0.0-1.3); Monocytes % 9.6 %; Neutrophils # 3.8 K/mcL (1.6-8.9); Platelet Count 150 K/mcL (140-400); Red Blood Count 3.15 M/mcL (4.19-5.50); Red Cell Distribution Width 15.1 % (11.5-14.5); Segmented Neutrophils % 82.5 %
[2017-08-31 05:48] LABS: BUN/Creatinine Ratio 10 (6-26); Blood Urea Nitrogen 5 mg/dL (6-20); Calcium 8.3 mg/dL (8.6-10.3); Carbon Dioxide 24 mEq/L (23-29); Chloride 103 mEq/L (98-107); Glucose 103 mg/dL (70-105); Osmolality,Calculated 272 (280-300); Potassium 3.8 mEq/L (3.5-5.1); Sodium 132 mEq/L (136-145); eGFR For African Americans > 60 (> 60); eGFR For Non-African Americans > 60 (> 60)
[2017-08-31] MEDS: *HR* OxyCODONE Immed Rel 5 MG TABLET PO PRN ×3 (06:33→18:38)
[2017-08-31] MEDS: Ondansetron 4 MG/2 ML VIAL IVP SCH ×4 (06:33→23:51)
[2017-08-31] MEDS: *HR* Morphine Sulfate SR (12 HR) 15 MG TABLET.ER PO SCH ×3 (08:01→23:51)
[2017-08-31] MEDS: Piperacillin/Tazobactam 3.375 GM in 0.9 % Sodium Chloride Mini Bag 100 ML IVPB SCH ×3 (08:03→23:51)
--- NOTE | 2017-08-31 10:43 | Internal Med Progress Note ---
Date of Encounter: 08/31/17 Time of Encounter: 10:42 - Assessment and plan (1) Pneumonia Current Visit: Yes Status: Acute Assessment and plan: Presented with shortness of breath and hemoptysis Disease progression of right upper lobe mass, known non-small cell cancer now with central areas suggestive of necrosis Consolidation with central cavitation suggestive of postobstructive pneumonitis/ pneumonia with necrosis and central cavitation Pulmonology was seeing in consultation however, patient refusing to see pulmonology team and refusing bronchoscopy Bronchoscopy would be beneficial in the setting of postobstructive pneumonitis as there is concern for endobronchial lesion however patient continues to refuse Reports symptoms are improving, No longer having hemoptysis, reports that shortness of breath is improving. Lungs are clear/diminished to auscultation No Leukocytosis noted, patient is afebrile and hemodynamically stable Continue empiric ABX therapy with vancomycin and Zosyn If patient remains afebrile overnight and continued to improve change ABX to Levaquin and consider discharge Continuous SPO2 monitoring Respiratory support per nasal cannula when necessary Qualifiers: Pneumonia type: due to unspecified organism Laterality: right Lung location: upper lobe of lung Qualified Code(s): J18.1 - Lobar pneumonia, unspecified organism (2) Dehydration Current Visit: Yes Status: Acute Assessment and plan: Improving, continued IVF, increase oral intake as tolerated (3) Hyponatremia Current Visit: Yes Status: Acute Assessment and plan: Mild hyponatremia, 08/31/17, see plan above Check labs daily (4) Hemoptysis Current Visit: Yes Status: Resolved Assessment and plan: Resolved (5) Lung cancer Current Visit: No Status: Acute Assessment and plan: History of non--small cell lung cancer status post bronchoscopy biopsy, PDL1 7% score, right upper lobe mass, T4 lesion invading mediastinum, paratracheal hilar adenopathy, possibly stage IIIB disease. No evidence of distant metastatic disease per PT Has been receiving concurrent chemoradiation therapy Patient states he is received 3 treatments thus far with 3 days ago Oncology continuing to see in consultation, appreciate recommendations Recommendations are to hold treatment until acute issues resolve his infection improves Qualifiers: Qualified Code(s): C34.90 - Malignant neoplasm of unspecified part of unspecified bronchus or lung (6) Anemia Current Visit: Yes Status: Acute Assessment and plan: Patient presented with hemoptysis Anemic on arrival Received 1 unit PRBC Anemia stable today, hemoptysis resolved Continue monitor for return of hemoptysis CBC daily Qualifiers: Anemia type: unspecified type Qualified Code(s): D64.9 - Anemia, unspecified (7) DVT prophylaxis Current Visit: Yes Status: Acute Assessment and plan: Continue EPCD's, early ambulation - Time Spent With Patient Total time spent is greater than 50% in coordination of care (as documented) at patient's floor/unit and/or counseling patient: 25 - 35 minutes - Subjective Interval history: Patient seen and examined at bedside today. No acute changes overnight. No longer having hemoptysis, however, continuing to report a productive cough with copious amounts of green/yellow sputum. Denies any shortness of breath. Right- sided chest wall pain radiating around to the right subscapular region, reports pain is improving today. - Constitutional Vitals: Temp Pulse Resp BP Pulse Ox 97.9 F 75 15 110/66 97 08/31/17 10:03 08/31/17 10:03 08/31/17 10:03 08/31/17 10:03 08/31/17 10:03 General appearance: Present: cooperative, A&O X 3, no acute distress, answers questions appropriately - Head Head exam: Present: atraumatic, normocephalic - Eye Eye exam: Present: EOMI, PERRL, conjuntiva pink, sclera anicteric Pupils: Present: PERRL - Neck Neck exam general surgery: Present: supple, trachea midline. Absent: lymphadenopathy - Respiratory Respiratory exam: Present: decreased breath sounds, CTAB. Absent: accessory muscle use, prolonged expiratory phase, rales, respiratory distress, rhonchi, wheezes, tachypnea - Cardiovascular Cardiovascular exam: Present: RRR, +S1, +S2. Absent: diastolic murmur, gallop, rubs, systolic murmur - GI/Abdominal GI/Abdominal exam: Present: normal bowel sounds, soft, no peritoneal signs. Absent: distended, tenderness - Extremities Exam Extremities exam: Present: warm, radial pulses palpable and symmetrical. Absent : calf tenderness, cyanotic, pedal edema - Neurological Exam Neurological exam: Present: CN II-XII intact, oriented X3, no focal deficits. Absent: pronater drift, facial droop, speech deficit - Skin Skin exam: Present: dry, intact Internal Medicine: Result - Labs CBC & Chem 7: 08/31/17 04:50 08/31/17 04:50 Labs: Short CBC 08/31/17 Range/Units 04:50 WBC 4.6 (4.3-11.1) K/mcL Hgb 8.8 L (12.9-16.9) g/dL Hct 27.0 L (37.5-50.1) % Plt Count 150 (140-400) K/mcL Neutrophils # 3.8 (1.6-8.9) K/mcL BMP 08/31/17 04:50 Sodium 132 L Potassium 3.8 Chloride 103 Carbon Dioxide 24 BUN 5 L Creatinine 0.48 L Glucose 103 Calcium 8.3 L - ABG Interpretation ABG results: PT/INR, D-dimer PT 15.6 Seconds (9.4-12.1) H 08/29/17 11:16 - VTE Reasons for not Prescribing Prophylaxis: Medical contraindication Documentation of Mechanical Device: Intermittent pneumatic compression device Consult Discharge Plan - Plan Referrals: Yarelis Norwodo CARPET BINDER [Primary Care Provider] -
[2017-08-31] MEDS: *HR* Promethazine 25 MG/ML VIAL IVP PRN ×2 (14:38→21:25)
[2017-09-01] MEDS: 0.9 % Sodium Chloride 1,000 ML IVC SCH (00:51)
[2017-09-01] MEDS: *HR* OxyCODONE Immed Rel 5 MG TABLET PO PRN ×2 (00:57→08:19)
[2017-09-01] MEDS: *HR* Promethazine 25 MG/ML VIAL IVP PRN ×2 (03:46→07:43)
[2017-09-01] MEDS: Ondansetron 4 MG/2 ML VIAL IVP SCH ×2 (05:42→12:20)
[2017-09-01 06:25] LABS: Eosinophils # 0.1 K/mcL (0.0-0.6); Eosinophils % 1.9 %; Hematocrit 27.2 % (37.5-50.1); Hemoglobin 9.2 g/dL (12.9-16.9); Lymphocytes # 0.4 K/mcL (0.6-4.6); Lymphocytes % 9.2 %; Mean Corpuscular HGB Conc 33.8 g/dL (31.6-35.5); Mean Corpuscular Hemoglobin 29.1 pg (28.0-33.3); Mean Corpuscular Volume 86.1 fL (83.0-100.0); Mean Platelet Volume 9.6 fL (9.4-12.4); Monocytes # 0.3 K/mcL (0.0-1.3); Monocytes % 7.8 %; Neutrophils # 3.3 K/mcL (1.6-8.9); Platelet Count 147 K/mcL (140-400); Red Blood Count 3.16 M/mcL (4.19-5.50); Red Cell Distribution Width 15.3 % (11.5-14.5); Segmented Neutrophils % 80.1 %
[2017-09-01 06:39] VITALS: BP 109/69
[2017-09-01 06:39] LABS: BUN/Creatinine Ratio 14 (6-26); Blood Urea Nitrogen 7 mg/dL (6-20); Calcium 8.4 mg/dL (8.6-10.3); Carbon Dioxide 23 mEq/L (23-29); Chloride 101 mEq/L (98-107); Glucose 104 mg/dL (70-105); Osmolality,Calculated 272 (280-300); Potassium 3.8 mEq/L (3.5-5.1); Sodium 132 mEq/L (136-145); eGFR For African Americans > 60 (> 60); eGFR For Non-African Americans > 60 (> 60)
[2017-09-01 06:50] LABS: Platelet Estimate Normal (Normal)
[2017-09-01] MEDS: *HR* Morphine Sulfate SR (12 HR) 15 MG TABLET.ER PO SCH (07:43)
[2017-09-01] MEDS: Piperacillin/Tazobactam 3.375 GM in 0.9 % Sodium Chloride Mini Bag 100 ML IVPB SCH (07:44)
--- NOTE | 2017-09-01 09:55 | Discharge Summary ---
Orders not resulted at time of discharge: Pending orders 08/29/17 15:21 Culture,Sputum with Gram Stain [RM] Routine 09/02/17 04:00 Basic Metabolic Panel AM 0400 Complete Blood Count [HEME] AM 0400 Date of Encounter: 09/01/17 Time of Encounter: 09:52 - Discharge Diagnosis (1) Hemoptysis Priority: Secondary Status: Resolved Assessment and Plan: resolved (2) Pneumonia Priority: Primary Status: Resolved Assessment and Plan: improved Qualifiers: Pneumonia type: due to unspecified organism Laterality: right Lung location: upper lobe of lung Qualified Code(s): J18.1 - Lobar pneumonia, unspecified organism (3) Hyponatremia Priority: Secondary Status: Chronic Assessment and Plan: stable (4) Dehydration Priority: Secondary Status: Resolved Assessment and Plan: resolved (5) DVT prophylaxis Priority: Secondary Status: Acute (6) Anemia Priority: Secondary Status: Chronic Assessment and Plan: HB stable Qualifiers: Anemia type: unspecified type Qualified Code(s): D64.9 - Anemia, unspecified (7) Lung cancer Priority: Secondary Status: Chronic Assessment and Plan: follow up with oncology Qualifiers: Laterality: unspecified laterality Lung location: unspecified part of lung Qualified Code(s): C34.90 - Malignant neoplasm of unspecified part of unspecified bronchus or lung Hospital course: Mr. Varghese is a 52 year old male who presented to the ED with chief complaint of hemoptyosis and cough. Patient was recently diagnosed with non-small cell lung cancer back in June and is been on chemotherapy and radiation therapy since then. He had a low-grade temperature of 100.1. Patient hemoglobin was found low 8.8. Patient denied having diarrhea or constipation. He did he has ribs pain secondary for months and worsening with cough. He was admitted for obstructive pneumonia and hemoptysis. Patient was admitted on 08/29. CTA showed Disease progression of right upper lobe mass, known non-small cell cancer now with central areas suggestive of necrosis Consolidation with central cavitation suggestive of postobstructive pneumonitis/pneumonia with necrosis and central cavitation. Pulmonology was seeing in consultation however, patient refusing to see pulmonology team and refusing bronchoscopy Bronchoscopy would be beneficial in the setting of postobstructive pneumonitis as there is concern for endobronchial lesion however patient continues to refuse Reports symptoms are improving, No longer having hemoptysis, reports that shortness of breath is improving. Lungs has no wheezing. No Leukocytosis noted, patient is afebrile and hemodynamically stable. patient has been on RA Sat 95%, patient is discharged on oral doxycline and augmentin. He is going to follow up oncology as scheduled - Time Spent with Patient Total time spent providing and/or coordinating discharge services: - Discharge Medications Prescriptions: Amoxicillin/Clavulanate [Augmentin] 875 mg PO BIDWM #20 tablet Doxycycline 100 mg PO BID #20 capsule Home Medications: Magic Mouthwash [Magic Mouthwash BLM] 10 ml PO QID PRN #240 ml 07/31/17 [Rx] Ondansetron HCl [Zofran] 4 mg PO Q8HR PRN #90 tab 07/31/17 [Rx] Prochlorperazine Maleate [Compazine] 10 mg PO Q8HR PRN #90 tablet 07/31/17 [Rx] Morphine Sulfate SR (12 HR) [MS Contin] 1 tab PO Q8HR 30 Days #90 tab 08/21/17 [ Rx] Docusate Sodium [Stool Softener] 100 mg PO DAILY 08/24/17 [History] OxyCODONE Immed Rel [Roxicodone 5 MG] 10 mg PO Q6HR PRN 15 Days #120 tablet [Rx] Amoxicillin/Clavulanate [Augmentin] 875 mg PO BIDWM #20 tablet 09/01/17 [Rx] Doxycycline 100 mg PO BID #20 capsule 09/01/17 [Rx] Allergies/Adverse Reactions: 3 Allergy/AdvReac Type Severity Reaction Status Date / Time No Known Allergies Allergy Verified 08/29/17 10:22 Date of admission: 08/29/17 15:11 Primary care physician: Yarelis Norwood CNP Consults: 08/30/17 11:47 Consult to Oncology [CONS] Routine Consulting Provider: [facility] Reason for Consult: h/o lung cancer. Concern for postobstructive pneumonia. Time Notified: 11:48 Call Completed: Yes - Constitutional Vitals: Temp Pulse Resp BP Pulse Ox 99.5 F 85 18 109/69 95 09/01/17 06:32 09/01/17 06:32 09/01/17 06:32 09/01/17 06:32 09/01/17 06:32 General appearance: Present: cooperative, A&O X 3, no acute distress, answers questions appropriately Exam: CONSTITUTIONAL: patient appears as an age appropriate male in no acute distress. EYES Clear sclerae, bilateral pupils are equal, reactive to light. EMOI. RESPIRATORY: No accessory muscle use, bilateral clear to auscultation, no wheezing, no crackles/rales. CARDIOVASCULAR: Regular heart rate, normal S1 and S2, no murmurs GASTROINTESTINAL: bowel sounds present, soft, no tenderness. MUSCULOSKELETAL: Joints in normal range of motion, no clubbing, no edema, no cyanosis. Bilateral peripheral pulses 2+. NEUROLOGIC: CN II to XII are grossly intact, no focal neurological deficit. - Patient Status Disposition: Home, Self-Care Condition: Good Overall status at discharge: patient is back to baseline - Discharge Instructions Follow Up With: Yarelis Norwood ETIOLOGY TEACHER [Primary Care Provider] - - Diet and Activity Activity: increase activity as tolerated Diet: advance to your usual diet - VTE Reasons for not Prescribing Prophylaxis: Medical contraindication Documentation of Mechanical Device: Intermittent pneumatic compression device
== END 2017-09-01 12:35 | disposition home or self-care (01) | DRG 139 ==
LOC: 3ANU 10:20 → EMEROO 10:20 → SUATTDRO 15:11 → 3ANU 15:34
PROVIDERS: ADMIT Hospitalist; ATTEND Hospitalist